=== PATIENT | male | born 1950 | race Two or more races ===

== ENCOUNTER → 2023-01-30 | Emergency (ER) | payer OTHER ==
[~2023-01-30] VITALS: Ht 165.1 cm; Wt 70.3 kg
[~2023-01-30] MED LIST: NABUMETONE750 MG PO
== END | disposition home or self-care (01) ==
LOC: EDBD 18:28 → ER 18:28
DX: L24.89 Irritant contact dermatitis due to other agents (principal)
CPT/HCPCS: 96372; 99282; J1885

== ENCOUNTER 2023-03-13 15:34 | Emergency (ER) | payer OTHER ==
[~2023-03-13] VITALS: Ht 152.4 cm; Wt 63.5 kg
[2023-03-13] MEDS ORDERED: NABUMETONE750 MG PO (20:35)
== END 2023-03-13 21:51 | disposition home or self-care (01) ==
LOC: ER 15:34
DX: L98.8 Other specified disorders of the skin and subcutaneous tissue (principal); Z88.8 Allergy status to other drugs, medicaments and biological substances; Z91.011 Allergy to milk products; Z91.013 Allergy to seafood

== ENCOUNTER 2023-03-14 15:50 | Emergency (ER) | payer OTHER ==
[~2023-03-14] VITALS: Ht 167.6 cm; Wt 63.5 kg
== END 2023-03-14 20:09 | disposition home or self-care (01) ==
LOC: ER 15:50
DX: R53.81 Other malaise (principal); R40.0 Somnolence; Z88.9 Allergy status to unspecified drugs, medicaments and biological substances; Z91.011 Allergy to milk products; Z91.013 Allergy to seafood
CPT/HCPCS: 96372; 99282; J1885

== ENCOUNTER 2023-03-15 16:56 | Emergency (ER) | payer OTHER ==
[~2023-03-15] VITALS: Ht 167.6 cm; Wt 63.5 kg
== END 2023-03-15 18:35 | disposition home or self-care (01) ==
LOC: ER 16:56
DX: M25.561 Pain in right knee (principal); M25.562 Pain in left knee; Z88.8 Allergy status to other drugs, medicaments and biological substances; Z91.011 Allergy to milk products; Z91.013 Allergy to seafood
CPT/HCPCS: 96372; 99283; J1100; J1885